=== PATIENT | male | born 1970 | race Caucasian/White ===

== ENCOUNTER 2016-10-02 12:47 | Emergency (ER) | payer SELFPAY ==
--- NOTE | 2016-10-02 15:34 | UC ---
Skin Complaint HPI - HPI Summary HPI Summary: painful rash day 2 around lower rib to abdomen right only, red base with vesicles - History of Current Complaint Chief Complaint: UCSkin Time Seen by Provider: 10/02/16 15:25 Stated Complaint: RASH Hx Obtained From: Patient Onset/Duration: Sudden Onset, Lasting Days - 2, Still Present Skin Exposure Onset/Duration: Days Ago Timing: Constant Onset Severity: Moderate Current Severity: Moderate Pain Intensity: 6 Pain Scale Used: 0-10 Numeric Location: Discrete - radiating around right back side of chest abdomen Aggravating: Nothing Alleviating: Nothing Associated Signs & Symptoms: Positive: Rash - Allergy/Home Medications Allergies/Adverse Reactions: Allergies Allergy/AdvReac Type Severity Reaction Status Date / Time No Known Allergies Allergy Verified 10/02/16 15:08 Review of Systems Constitutional: Negative Skin: Rash Eyes: Negative ENT: Negative Respiratory: Negative Cardiovascular: Negative Gastrointestinal: Negative Genitourinary: Negative Motor: Negative Neurovascular: Negative Musculoskeletal: Negative Neurological: Negative Psychological: Negative All Other Systems Reviewed And Are Negative: Yes PMH/Surg Hx/FS Hx/Imm Hx Previously Healthy: Yes - Surgical History Surgical History: Yes Surgery Procedure, Year, and Place: TONSILLECTOMY, APPENDECTOMY - Family History Known Family History: Positive: Hypertension - Social History Occupation: Unemployed Lives: With Family Alcohol Use: Occasionally Substance Use Type: None Smoking Status (MU): Never Smoked Tobacco Physical Exam Triage Information Reviewed: Yes Appearance: Well-Appearing, No Pain Distress, Well-Nourished Vital Signs: Initial Vital Signs Temp 98.3 F 10/02/16 15:03 Pulse 75 10/02/16 15:03 Resp 16 10/02/16 15:03 BP 175/115 10/02/16 15:03 Pulse Ox 95 10/02/16 15:03 Vital Signs Reviewed: Yes Eye Exam: Normal Eyes: Positive: Conjunctiva Clear ENT Exam: Normal ENT: Positive: Normal ENT inspection, Hearing grossly normal. Negative: Nasal congestion, Nasal drainage, Trismus, Muffled/hoarse voice Neck exam: Normal Neck: Positive: Supple, Nontender, No Lymphadenopathy Respiratory Exam: Normal Respiratory: Positive: Chest non-tender, Lungs clear, Normal breath sounds, No respiratory distress, No accessory muscle use Cardiovascular Exam: Normal Cardiovascular: Positive: RRR, No Murmur, Pulses Normal, Brisk Capillary Refill Musculoskeletal Exam: Normal Musculoskeletal: Positive: Strength Intact, ROM Intact Neurological Exam: Normal Neurological: Positive: Alert, Muscle Tone Normal Psychological Exam: Normal Skin: Positive: rashes, significant lesion(s) - varacella rash right back radiating around lower ribs on to abdomen Course/Dx - Course Course Of Treatment: valtrex, hydrocodone, ibuprofen, referral for BP recheck DASH diet information follow with pcp - Differential Diagnoses - Skin Complaint Differential Diagnoses: Impetigo, Local Allergic Reaction, Varicella Zoster - Diagnoses Provider Diagnoses: Varicella [place], Hypertension Discharge - Discharge Plan Condition: Stable Disposition: HOME Prescriptions: HYDROcodone/ACETAMIN 5-325 MG* [[place] 5-325 TAB*] 1 - 2 tab PO Q6H PRN #24 tab MDD 8 PRN Reason: Pain ValACYclovir (*) [Valtrex 1 GM(*)] 1 gm PO TID #21 tab Patient Education Materials: Shingles (ED), DASH Eating Plan (ED), Hypertension (ED) Referrals: [facility]FERR[facility] [Outside] - 5 Days No Primary Care Phys,NOPCP [Primary Care Provider] -
== END 2016-10-02 15:52 | disposition home or self-care (01) ==
LOC: UCEAST 12:47
DX: B02.9 Zoster without complications (principal); I10 Essential (primary) hypertension
CPT/HCPCS: 99202; G0463

== ENCOUNTER 2017-01-08 11:43 | Emergency (ER) | payer BC ==
[2017-01-08] MEDS ORDERED: Ibuprofen TAB* 600 MG PO ONE (14:00)
--- NOTE | 2017-01-08 14:01 | UC ---
FLU HPI - HPI Summary HPI Summary: 46 male presents with complaints of sore throat, headache, body aches, nasal congestion and dry non-productive cough that began yesterday 01/07/17. Says "he feels like crap". States symptoms have worsened over night. He does not know if he has had a fever but has felt feverish/chills. Took ibuprofen with the last dose being around 8 am this morning. 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 Denies nausea/vomiting, ear pain, SOB, chest pain and difficulty breathing. Did not have the flu shot this year. - History of Current Complaint Chief Complaint: UCRespiratory Stated Complaint: SORE THROAT Time Seen by Provider: 01/08/17 13:32 Hx Obtained From: Patient Onset/Duration: Sudden Onset, Lasting Days, Worse Since Severity Currently: Mild Severity Initially: Moderate Pain Intensity: 7 Pain Scale Used: 0-10 Numeric Associated Signs & Symptoms: Positive: Fever, Myalgia, Cough, Sore Throat, Nasal Congestion, Headache Related Hx: Possible Flu/Infectious Exposure - Allergy/Home Medications Allergies/Adverse Reactions: Allergies Allergy/AdvReac Type Severity Reaction Status Date / Time No Known Allergies Allergy Verified 01/08/17 13:32 PMH/Surg Hx/FS Hx/Imm Hx Endocrine History Of: Denies: Diabetes Cardiovascular History Of: Denies: Cardiac Disorders, Hypertension Respiratory History Of: Denies: COPD - Surgical History Surgical History: Yes Surgery Procedure, Year, and Place: TONSILLECTOMY, APPENDECTOMY - Family History Known Family History: Positive: Hypertension - Social History Alcohol Use: Weekly Substance Use Type: None Smoking Status (MU): Never Smoked Tobacco - Immunization History Most Recent Influenza Vaccination: did not have Vaccination Up to Date: Yes Review of Systems Constitutional: Fever, Chills, Fatigue Skin: Negative Eyes: Negative ENT: Sore Throat, Nasal Discharge Respiratory: Cough Cardiovascular: Negative Gastrointestinal: Negative Genitourinary: Negative Motor: Negative Neurovascular: Negative Musculoskeletal: Myalgia Neurological: Headache Psychological: Negative All Other Systems Reviewed And Are Negative: Yes Physical Exam Triage Information Reviewed: Yes Appearance: No Pain Distress, Well-Nourished, Ill-Appearing Vital Signs: Initial Vital Signs Temp 99.4 F 01/08/17 13:29 Pulse 48 01/08/17 13:29 Resp 20 01/08/17 13:29 BP 139/75 01/08/17 13:29 Pulse Ox 98 01/08/17 13:29 low grade temp with ibuprofen Vital Signs Reviewed: Yes Eyes: Positive: Conjunctiva Clear ENT: Positive: Normal ENT inspection, Hearing grossly normal, Pharynx normal, Nasal congestion, TMs normal. Negative: Tonsillar swelling, Tonsillar exudate - no tonsils visualized Dental Exam: Normal Neck: Positive: Supple, Nontender, No Lymphadenopathy Respiratory: Positive: Chest non-tender, Lungs clear, Normal breath sounds, No respiratory distress, No accessory muscle use Cardiovascular: Positive: RRR, No Murmur, Pulses Normal, Brisk Capillary Refill Abdominal Exam: Normal Bowel Sounds: Positive: Present Musculoskeletal: Positive: Strength Intact, ROM Intact, No Edema Neurological: Positive: Alert Psychological Exam: Normal Skin Exam: Normal Flu Course/Dx - Course Course Of Treatment: influenza culture obtained however was difficult due to patient pulling away, not an accurate culture, no discharge available to culture. strep obtained by nurse and negative. given dose of ibuprofen while in office patient will be treated for flu. tamiflu, fluids, ibuprofen/tyelnol, rest and flonase for nasal congestion. aware of worsening signs and symptoms. follow up pcp. - Differential Dx/Diagnosis Differential Diagnosis/HQI/PQRI: Bronchitis, Influenza, Upper Respiratory Infection, Other - pharyngitis Provider Diagnoses: Influenza Discharge - Discharge Plan Condition: Stable Disposition: HOME Prescriptions: Fluticasone NASAL SPRAY 50MCG* [Flonase NASAL SPRAY 50MCG*] 2 spray BOTH NARES DAILY #1 btl Patient Education Materials: Influenza (ED) Forms: *Work Release Referrals: No Primary Care Phys,NOPCP [Primary Care Provider] - [facility] [place] [facility]ERR[facility] [Outside] Additional Instructions: Take prescribed Tamiflu with food to help with improving symptoms sooner. Use prescribed nasal spray for congestion. Drink plenty of fluids and get plenty of rest. Wash hands frequently as this is very contagious. Continue ibuprofen/tylenol for aches and fever. Chloraseptic spray helps with sore throat and is available over the counter. Swish with salt water is recommended. If you would like taking cough medicine at night to help sleep, you may take Robitussin over the counter at bedtime. If symptoms do not improve or worsen please return or seek medical attention.
== END 2017-01-08 14:50 | disposition home or self-care (01) ==
LOC: UCEAST 11:43
DX: J11.1 Influenza due to unidentified influenza virus with other respiratory manifestations (principal)
CPT/HCPCS: 87502; 87651; 99212; A9270-GY; G0463

== ENCOUNTER 2019-07-06 13:19 | Emergency (ER) | payer BC ==
[2019-07-06] MEDS ORDERED: Acetaminophen TAB* 325 MG PO ONE (13:26)
[2019-07-06 15:13] LABS: ABS Lymphocytes 0.7 10^3/ul (1.0-4.8); ABS Monocytes 0.8 10^3/ul (0-0.8); ABS Neutrophils 11.3 10^3/ul (1.5-7.7); Hematocrit 41 % (42-52); Lymphocyte % 5.4 %; Mean Corpuscular HGB Conc 34 g/dL (31-36); Mean Corpuscular Hemoglobin 30 pg (27-31); Mean Corpuscular Volume 87 fL (80-94); Mean Platelet Volume 7.3 fL (7.4-10.4); Platelet Count 225 10^3/uL (150-450); Red Blood Count 4.68 10^6 /uL (4.18-5.48); Red Cell Distribution Width 13 % (10-15); White Blood Count 12.8 10^3/uL (3.5-10.8)
[2019-07-06 15:27] LABS: Albumin/Globulin Ratio 1.9 (1-3); BUN/Creatinine Ratio 14.3 (8-20); Calcium 8.3 mg/dL (8.6-10.3); EGFR Non-African American 96.7 (>60); Globulin 2.1 g/dL (2-4); Potassium 3.5 mmol/L (3.5-5.0); Total Bilirubin 0.5 mg/dL (0.2-1.0); Total Protein 6.1 g/dL (6.4-8.9)
[2019-07-06] MEDS ORDERED: Ibuprofen TAB* 600 MG PO ONE (15:28)
[2019-07-06] MEDS ORDERED: Cephalexin CAP* 500 MG PO ONE (15:39)
[2019-07-06] MEDS ORDERED: Tetan/Diph/Pertus SYR(Tdap)* 0.5 ML SYR(BOOSTRIX) use SYR contains LATEX IM ONE (15:40)
[2019-07-06] MEDS ORDERED: DOXYcycline CAP(*) 100 MG PO ONE (15:40)
[2019-07-06 15:41] LABS: Urine Appearance Clear; Urine Bacteria Absent (Absent); Urine Bilirubin Negative (Negative); Urine Blood 1+ (Negative); Urine Color Straw; Urine Glucose Negative (Negative); Urine Ketones Negative (Negative); Urine Nitrite Negative (Negative); Urine Protein Negative (Negative); Urine Red Blood Cell Trace(0-2/hpf) (Absent); Urine Specific Gravity 1.002 (1.010-1.030); Urine Urobilinogen Negative (Negative); Urine White Blood Cell Absent (Absent)
[2019-07-06 16:16] VITALS: BP 143/81
--- NOTE | 2019-07-06 19:00 | ED ---
HPI Febrile Illness - HPI Summary HPI Summary: 49 year old male presents to the ED with a chief complaint of fever and chills starting Sunday and drastically worsening this morning. He reports that his left upper thigh lymph node is swollen, and he is coughing a little bit. He denies sore throat, dysuria, N/V/D, neck stiffness, headache, and rashes. He has not been out of the country recently and has not had exposure to ticks. He had shingles 3 years ago. Patient had had an appendectomy. He drinks alcohol occasionally and does not smoke tobacco or do recreational drugs. Medications reviewed. Allergies noted. - History of Current Complaint Chief Complaint: EDFever Time Seen by Provider: 07/06/19 14:22 Hx Obtained From: Patient Onset/Duration: Started Days Ago - 2 days ago, Still Present Timing: Lasting Days Pain Intensity: 0 Pain Scale Used: 0-10 Numeric Aggravating Factors: Nothing Alleviating Factors: Nothing Associated Signs and Symptoms: Cough, Swelling - left thigh lymph node - Allergy/Home Medications Allergies/Adverse Reactions: Allergies Allergy/AdvReac Type Severity Reaction Status Date / Time No Known Allergies Allergy Verified 01/08/17 13:32 PMH/Surg Hx/FS Hx/Imm Hx Endocrine/Hematology History: Denies: Hx Diabetes Cardiovascular History: Denies: Hx Hypertension Respiratory History: Denies: Hx Chronic Obstructive Pulmonary Disease (COPD) - Surgical History Surgery Procedure, Year, and Place: TONSILLECTOMY, APPENDECTOMY Infectious Disease History: No Infectious Disease History: Denies: Traveled Outside the [place] in Last 30 Days - Family History Known Family History: Positive: Hypertension - Social History Alcohol Use: Weekly Substance Use Type: Reports: None Smoking Status (MU): Never Smoked Tobacco Review of Systems Positive: Fever, Chills Negative: Sore Throat Positive: Cough Negative: Vomiting, Diarrhea, Nausea Negative: dysuria Musculoskeletal: Negative - Neg - neck stiffness Negative: Headache All Other Systems Reviewed And Are Negative: Yes Physical Exam - Summary Physical Exam Summary: Constitutional: Well-developed, Well-nourished, Alert. (-) Distressed Skin: Warm, Dry. Wound on left leg is warm, tender, and erythematous. HENT: Normocephalic; Atraumatic Eyes: Conjunctiva normal Neck: Musculoskeletal ROM normal neck. (-) JVD, (-) Stridor, (-) Tracheal deviation Cardio: Rhythm regular, rate normal, Heart sounds normal; Intact distal pulses; Radial pulses are 2+ and symmetric. (-) Murmur Pulmonary/Chest wall: Effort normal. (-) Respiratory distress, (-) Wheezes, (-) Rales Abd: Soft, (-) tenderness, (-) Distension, (-) Guarding, (-) Rebound Musculoskeletal: (-) Edema Lymph: (-) Cervical adenopathy, lymphadenopathy in the left thigh. Neuro: Alert, Oriented x3, negative Brudzinskis and Kernigs signs. Psych: Mood and affect Normal Triage Information Reviewed: Yes Vital Signs On Initial Exam: Initial Vitals Temp Pulse Resp BP Pulse Ox 103.1 F 109 16 150/94 97 07/06/19 13:21 07/06/19 13:21 07/06/19 13:21 07/06/19 13:21 07/06/19 13:21 Vital Signs Reviewed: Yes Procedures - Sedation Patient Received Moderate/Deep Sedation with Procedure: No Diagnostics - Vital Signs Vital Signs Temp Pulse Resp BP Pulse Ox 07/06/19 16:15 100.6 F 98 20 143/81 96 07/06/19 16:00 89 96 07/06/19 15:02 85 95 07/06/19 14:47 101 F 07/06/19 14:38 89 94 07/06/19 13:21 103.1 F 109 16 150/94 97 - Laboratory Lab Results: Lab Results 07/06/19 07/06/19 07/06/19 Range/Units 14:59 14:59 14:59 WBC 12.8 H (3.5-10.8) 10^3/uL RBC 4.68 (4.18-5.48) 10^6 /uL Hgb 14.0 (14.0-18.0) g/dL Hct 41 L (42-52) % MCV 87 (80-94) fL MCH 30 (27-31) pg MCHC 34 (31-36) g/dL RDW 13 (10-15) % Plt Count 225 (150-450) 10^3/uL MPV 7.3 L (7.4-10.4) fL Neut % (Auto) 88.6 % Lymph % (Auto) 5.4 % [place] % (Auto) 5.9 % Eos % (Auto) 0.0 % Baso % (Auto) 0.1 % Absolute Neuts (auto) 11.3 H (1.5-7.7) 10^3/ul Absolute Lymphs (auto) 0.7 L (1.0-4.8) 10^3/ul Absolute Monos (auto) 0.8 (0-0.8) 10^3/ul Absolute Eos (auto) 0.0 (0-0.6) 10^3/ul Absolute Basos (auto) 0.0 (0-0.2) 10^3/ul Absolute Nucleated RBC 0.0 10^3/ul Nucleated RBC % 0.0 Sodium 132 L (135-145) mmol/L Potassium 3.5 (3.5-5.0) mmol/L Chloride 102 (101-111) mmol/L Carbon Dioxide 24 (22-32) mmol/L Anion Gap 6 (2-11) mmol/L BUN 12 (6-24) mg/dL Creatinine 0.84 (0.67-1.17) mg/dL Est GFR ( Amer) 117.0 (>60) Est GFR (Non-Af Amer) 96.7 (>60) BUN/Creatinine Ratio 14.3 (8-20) Glucose 109 H (70-100) mg/dL Lactic Acid 1.2 (0.5-2.0) mmol/L Calcium 8.3 L (8.6-10.3) mg/dL Total Bilirubin 0.50 (0.2-1.0) mg/dL AST 16 (13-39) U/L ALT 20 (7-52) U/L Alkaline Phosphatase 56 (34-104) U/L Total Protein 6.1 L (6.4-8.9) g/dL Albumin 4.0 (3.2-5.2) g/dL Globulin 2.1 (2-4) g/dL Albumin/Globulin Ratio 1.9 (1-3) Urine Color Urine Appearance Urine pH (5-9) Ur Specific [place] (1.010-1.030) Urine Protein (Negative) Urine Ketones (Negative) Urine Blood (Negative) Urine Nitrate (Negative) Urine Bilirubin (Negative) Urine Urobilinogen (Negative) Ur Leukocyte Esterase (Negative) Urine WBC (Auto) (Absent) Urine RBC (Auto) (Absent) Urine Bacteria (Absent) Urine Glucose (Negative) 07/06/19 Range/Units 15:31 WBC (3.5-10.8) 10^3/uL RBC (4.18-5.48) 10^6 /uL Hgb (14.0-18.0) g/dL Hct (42-52) % MCV (80-94) fL MCH (27-31) pg MCHC (31-36) g/dL RDW (10-15) % Plt Count (150-450) 10^3/uL MPV (7.4-10.4) fL Neut % (Auto) % Lymph % (Auto) % [place] % (Auto) % Eos % (Auto) % Baso % (Auto) % Absolute Neuts (auto) (1.5-7.7) 10^3/ul Absolute Lymphs (auto) (1.0-4.8) 10^3/ul Absolute Monos (auto) (0-0.8) 10^3/ul Absolute Eos (auto) (0-0.6) 10^3/ul Absolute Basos (auto) (0-0.2) 10^3/ul Absolute Nucleated RBC 10^3/ul Nucleated RBC % Sodium (135-145) mmol/L Potassium (3.5-5.0) mmol/L Chloride (101-111) mmol/L Carbon Dioxide (22-32) mmol/L Anion Gap (2-11) mmol/L BUN (6-24) mg/dL Creatinine (0.67-1.17) mg/dL Est GFR ( Amer) (>60) Est GFR (Non-Af Amer) (>60) BUN/Creatinine Ratio (8-20) Glucose (70-100) mg/dL Lactic Acid (0.5-2.0) mmol/L Calcium (8.6-10.3) mg/dL Total Bilirubin (0.2-1.0) mg/dL AST (13-39) U/L ALT (7-52) U/L Alkaline Phosphatase (34-104) U/L Total Protein (6.4-8.9) g/dL Albumin (3.2-5.2) g/dL Globulin (2-4) g/dL Albumin/Globulin Ratio (1-3) Urine Color Straw Urine Appearance Clear Urine pH 7.0 (5-9) Ur Specific [place] 1.002 L (1.010-1.030) Urine Protein Negative (Negative) Urine Ketones Negative (Negative) Urine Blood 1+ A (Negative) Urine Nitrate Negative (Negative) Urine Bilirubin Negative (Negative) Urine Urobilinogen Negative (Negative) Ur Leukocyte Esterase Negative (Negative) Urine WBC (Auto) Absent (Absent) Urine RBC (Auto) Trace(0-2/hpf) (Absent) Urine Bacteria Absent (Absent) Urine Glucose Negative (Negative) Result Diagrams: 07/06/19 14:59 07/06/19 14:59 Lab Statement: Any lab studies that have been ordered have been reviewed, and results considered in the medical decision making process. - Radiology CXR Radiology Interpretation Completed By: Radiologist Summary of Radiographic Findings: LOW LUNG VOLUMES, NO EVIDENCE FOR ACUTE FINDING. An ED physician has reviewed this report. Course/Dx - Course Course Of Treatment: Patient is here with cellulitis. Patient's had fever with really no other symptoms started a couple days ago. Patient did notice a enlarged lymph node on his left leg. When patient was undressed, he was found to have a wound on his leg that appeared infected. Patient a sepsis workup which was grossly unremarkable some mild leukocytosis. Patient was started on Keflex and doxycycline to cover for strep/staph. - Diagnoses Provider Diagnoses: Lymphadenopathy, Cellulitis, Fever Discharge ED - Sign-Out/Discharge Documenting (check all that apply): Patient Departure - discharge - Discharge Plan Condition: Stable Disposition: HOME Prescriptions: Cephalexin CAP* [Keflex CAP*] 500 mg PO TID 7 Days #21 cap DOXYcycline CAP(*) [DOXYcycline 100MG CAP(*)] 100 mg PO BID 7 Days #14 cap Patient Education Materials: Cellulitis (ED) Referrals: [facility] [Outside] [facility] [facility] [Outside] Additional Instructions: Please take your antibiotics as prescribed Please take Tylenol and Motrin for fever Please return to the emergency department if you have worsening fever, vomiting , worsening redness at your wound Please call both of these referrals to set up an appointment in 1-3 days - Billing Disposition and Condition Condition: STABLE Disposition: Home - Attestation Statements Document Initiated by Scribe: Yes Documenting Scribe: Jason Yen Provider For Whom Scribe is Documenting (Include Credential): Harish Mustafa MD. Scribe Attestation: IJason, scribed for Harish Mustafa MD. on 07/06/19 at 2115. Scribe Documentation Reviewed: Yes Provider Attestation: The documentation as recorded by the scribe, Jason Yen accurately reflects the service I personally performed and the decisions made by me, Harish Mustafa MD. Status of Scribe Document: Viewed
== END 2019-07-06 16:14 | disposition home or self-care (01) ==
LOC: ED 13:19
DX: R59.1 Generalized enlarged lymph nodes (principal); L03.90 Cellulitis, unspecified; R50.9 Fever, unspecified; R05 Cough; Z79.899 Other long term (current) drug therapy
CPT/HCPCS: 36415; 71046; 80053; 81003; 81015; 83605; 85025; 87040; 90471; 90715; 99282; A9270-GY

== ENCOUNTER 2019-07-07 09:45 | Inpatient (IN) | payer BC ==
[2019-07-07 10:17] LABS: ABS Lymphocytes 1.4 10^3/ul (1.0-4.8); Eosinophil % 0.1 %; Hematocrit 41 % (42-52); Lymphocyte % 16.9 %; Mean Corpuscular HGB Conc 34 g/dL (31-36); Mean Corpuscular Hemoglobin 30 pg (27-31); Mean Corpuscular Volume 89 fL (80-94); Mean Platelet Volume 6.9 fL (7.4-10.4); Platelet Count 237 10^3/uL (150-450); Red Blood Count 4.68 10^6 /uL (4.18-5.48); Red Cell Distribution Width 13 % (10-15); White Blood Count 8.5 10^3/uL (3.5-10.8)
--- NOTE | 2019-07-07 10:19 | ED ---
Lower Extremity - HPI Summary HPI Summary: Patient is a 49-year-old male who presents emergency department for worsening redness and pain to left leg. states patient sustained abrasions to his left lower leg a few weeks ago and area has since became red and painful. Patient was seen in the ER yesterday with a fever and diagnosed with cellulitis. He was placed on Keflex and doxycycline. Patient returns to the ER today because redness has spread up left leg with painful lump. Patient otherwise denies past medical history. Symptoms are moderate in severity. No current modifying factors. Pt. has been taking tylenol and motrin around the clock for fever and pain control. Labs and BCs obtained yesterday. - History of Current Complaint Chief Complaint: EDExtremityLower Stated Complaint: INFECTED CUT PER PT Time Seen by Provider: 07/07/19 09:50 Hx Obtained From: Patient Pain Intensity: 5 - Allergies/Home Medications Allergies/Adverse Reactions: Allergies Allergy/AdvReac Type Severity Reaction Status Date / Time No Known Allergies Allergy Verified 01/08/17 13:32 Home Medications: Home Medications Acetaminophen TAB* [Tylenol TAB*] 325 mg PO Q4H PRN 07/07/19 [History Confirmed 07/07/19] Ibuprofen TAB* [Advil TAB*] 200 mg PO Q6H PRN 07/07/19 [History Confirmed ] PMH/Surg Hx/FS Hx/Imm Hx Previously Healthy: Yes Endocrine/Hematology History: Denies: Hx Diabetes Cardiovascular History: Denies: Hx Hypertension Respiratory History: Denies: Hx Chronic Obstructive Pulmonary Disease (COPD) - Surgical History Surgery Procedure, Year, and Place: TONSILLECTOMY, APPENDECTOMY Infectious Disease History: No Infectious Disease History: Denies: Traveled Outside the [place] in Last 30 Days - Family History Known Family History: Positive: Hypertension, Non-Contributory - Social History Occupation: Unemployed Lives: With Family Alcohol Use: Weekly Substance Use Type: Reports: None Smoking Status (MU): Never Smoked Tobacco Review of Systems Positive: Fever Cardiovascular: Negative Respiratory: Negative Gastrointestinal: Negative Positive: Other - redness and pain to left leg. Positive: Other - Wounds to left lower leg. All Other Systems Reviewed And Are Negative: Yes Physical Exam Triage Information Reviewed: Yes Vital Signs On Initial Exam: Initial Vitals Temp Pulse Resp BP Pulse Ox 98.1 F 84 16 144/96 97 07/07/19 09:46 07/07/19 09:46 07/07/19 09:46 07/07/19 09:46 07/07/19 09:46 Vital Signs Reviewed: Yes Appearance: Positive: Well-Appearing - Pt. lying on bed in NAD. Skin: Positive: Warm, Dry Head/Face: Positive: Temporal Artery Tenderness Eyes: Positive: Normal, EOMI Neck: Positive: Supple Respiratory/Lung Sounds: Positive: Clear to Auscultation, Breath Sounds Present Cardiovascular: Positive: Normal, RRR Musculoskeletal: Positive: Other - Two small wounds to left lower leg with surrouding erythema and warmth. Skin marker in place and erythem does not go outside of lines. Lymphangitis up leg into groin. Neurological: Positive: Normal, CN Intact II-III Psychiatric: Positive: Affect/Mood Appropriate Procedures - Sedation Patient Received Moderate/Deep Sedation with Procedure: No Diagnostics - Vital Signs Vital Signs Temp Pulse Resp BP Pulse Ox 07/07/19 10:01 71 26 142/92 95 07/07/19 09:46 98.1 F 84 16 144/96 97 - Laboratory Result Diagrams: 07/07/19 10:06 07/07/19 10:06 Lab Statement: Any lab studies that have been ordered have been reviewed, and results considered in the medical decision making process. Lower Extremity Course/Dx - Course Course Of Treatment: Pt. with worsening erythema and new lymphangitis. He is afebrile and nontoxic appearing. Labs rechecked and show an improving WBC but CRP of 143. Pt. given a dose of IV rocephin. Pt. concerned with being dc home. He deons not current have a PCP. Given spreading infection hospitalist consulted for admission. Case discussed with Dr. Avila who will accept pt. for admission. - Diagnoses Differential Diagnosis/HQI/PQRI: Positive: Cellulitis Provider Diagnoses: Cellulitis, leg, Lymphangitis Discharge ED - Sign-Out/Discharge Documenting (check all that apply): Patient Departure - Discharge Plan Condition: Stable Disposition: ADMITTED TO [facility] - Billing Disposition and Condition Condition: STABLE Disposition: Admitted to [facility]
[2019-07-07] MEDS ORDERED: cefTRIAXone(*) 1 GM in NS 0.9% 50 ML* 50 ML IVPB ONE (10:38)
[2019-07-07 10:40] LABS: Albumin 4.3 g/dL (3.2-5.2); Albumin/Globulin Ratio 1.9 (1-3); BUN/Creatinine Ratio 10.8 (8-20); C Reactive Protein 143.09 mg/L (<8.01); Calcium 8.9 mg/dL (8.6-10.3); EGFR African American 118.7 (>60); EGFR Non-African American 98.1 (>60); Globulin 2.3 g/dL (2-4); Potassium 3.8 mmol/L (3.5-5.0); Total Bilirubin 0.5 mg/dL (0.2-1.0); Total Protein 6.6 g/dL (6.4-8.9)
[2019-07-07] MEDS: ceFAZolin 1 GM ADVAN(*) 1 GM in NS 0.9% 50 ML* 50 ML IVPB SCH ×2 (14:30→21:12)
[2019-07-07] MEDS: Heparin VIAL(*) 5000 UNITS/ML VIAL (FIVE THOUSAND) SUBCUT SCH ×2 (14:30→21:18)
[2019-07-07] MEDS: Acetaminophen TAB* 325 MG PO PRN (14:44)
--- NOTE | 2019-07-07 16:30 | HP ---
HISTORY AND PHYSICAL: DATE OF ADMISSION: 07/07/19 TIME OF EVALUATION: 12:50 p.m. PRIMARY CARE PROVIDER: The patient has no primary care provider, but he is making arrangements to see Dr. Alegria. CHIEF COMPLAINT: "My leg is worse." HISTORY OF PRESENT ILLNESS: Mr. Huber is a 49-year-old male with no significant past medical history, who initially presented to the emergency room yesterday with complaints of fever, chills, left leg redness. The patient states he was in his usual state of health last week. He has been doing some work around the house including some painting and he thinks he "bumped" his left leg on to a ladder and had some scrape to the johnson area. So, he noted the scratch to the anterior aspect of his left leg and over the weekend , he developed fever, chills, body aches and his left johnson became erythematous, reason why he came to the emergency room. He was evaluated by Dr. Mustafa and was prescribed cephalexin and doxycycline for cellulitis. The patient's lesion was demarcated and he states that at home, the erythema had spread, going all the way up to his thigh and he also noticed that "the lump" in his left inguinal area was more pronounced and tender. He states that he took the medication as prescribed, but became concerned with progression of his erythema , reason why he came to the emergency room for further evaluation. On his initial ED visit, the patient had a white cell count of 12.8 and this is normalized now to 8.5. PAST MEDICAL HISTORY: None. PAST SURGICAL HISTORY: 1. Status post tonsillectomy. 2. Status post appendectomy. FAMILY HISTORY: His father of cancer. He does not know the primary. He also had hypertension. SOCIAL HISTORY: The patient states that he drinks alcohol weekly, some times beers. Denies tobacco or drug use. He works as a teacher. Surrogate decision maker is his , Yohana Walker, phone number is [phone]. REVIEW OF SYSTEMS: A 14-point review of systems was performed and all the pertinent negative findings are in the HPI. PHYSICAL EXAMINATION GENERAL: The patient is a pleasant middle-aged gentleman, lying in the ED stretcher, in no acute distress. VITAL SIGNS: Temperature 98.7, heart rate is 71, respiratory rate is 18, oxygen saturation is 99% on room air, blood pressure is 149/97. HEENT: Pupils are equal. Moist mucous membranes. CVS: Normal S1 and S2. Regular rate and rhythm. CHEST: Breath sounds bilaterally with no added sounds. ABDOMEN: Soft. Bowel sounds are present. EXTREMITIES: The patient has scraped the left johnson with erythema that extends the area demarcated by the ED nurse yesterday. He has lymphangitic streaks going all the way up to his left inguinal area with palpable masses in the area with mild tenderness suggestive of lymphadenopathy. There are good pulses bilaterally. Good capillary refill. NEUROLOGIC: He is alert and oriented x3. Able to move all 4 extremities. DIAGNOSTIC STUDIES/LAB DATA: The patient had a CBC that showed WBC of 8.5, hemoglobin 14, hematocrit 41, platelets of 237, 79% neutrophils. Chemistry showed a sodium of 141, potassium 3.8, chloride 105, bicarb 29, BUN 9, creatinine of 0.83, glucose of 107, lactic acid is 1.7, calcium is 8.9. LFTs are normal. CRP is 143. EKG done on 07/07/19 at 2:36 p.m. showed sinus rhythm at 73 beats per minute with ventricular trigeminy. There is no prior EKG to compare. ASSESSMENT AND PLAN: Mr. Huber is a 49-year-old male with no past medical history, who presents to the emergency room with worsening of his left lower extremity cellulitis despite oral antibiotic therapy. 1. Sepsis. The patient met sepsis criteria on his Sunday visit with fever, tachycardia and leukocytosis. This has resolved at this time. Source is cellulitis. 2. Left lower extremity cellulitis. Suspect streptococcal in nature. There is no purulence and the sudden onset of symptoms associated with fever and other systemic signs is suggestive of streptococcal infection. The patient will be started on cefazolin IV and we will continue symptomatic treatment. We will demarcate the new area of erythema and we will continue to monitor. I believe his left inguinal lesion represents adenopathy, but he is at risk of forming phlegmon. We will continue to monitor and if he continues to progress, we will check an ultrasound. Blood cultures are ordered. 3. DVT prophylaxis. The patient has a score of 2 on a DVT prophylaxis assessment guide and he will be started on subcutaneous heparin. 4. Code status is full. TIME SPENT: Approximately 50 minutes was spent with the patient interview, medical record review, and physical examination to complete this admission. More than half of this time was spent [id number] with the patient and coordination of care. [id number]/[facility] #: [id number] BRENDAN
[2019-07-07 18:58] LABS: Magnesium 1.9 mg/dL (1.9-2.7)
[2019-07-07] MEDS: Ibuprofen TAB* 600 MG PO PRN (19:33)
[2019-07-08] MEDS: ceFAZolin 1 GM ADVAN(*) 1 GM in NS 0.9% 50 ML* 50 ML IVPB SCH ×3 (05:25→21:55)
[2019-07-08] MEDS: Heparin VIAL(*) 5000 UNITS/ML VIAL (FIVE THOUSAND) SUBCUT SCH ×3 (05:30→21:47)
[2019-07-08 07:50] LABS: ABS Lymphocytes 1.7 10^3/ul (1.0-4.8); ABS Monocytes 0.8 10^3/ul (0-0.8); ABS Neutrophils 4.6 10^3/ul (1.5-7.7); Eosinophil % 0.5 %; Hematocrit 41 % (42-52); Hemoglobin 14.1 g/dL (14.0-18.0); Lymphocyte % 23.2 %; Mean Corpuscular HGB Conc 35 g/dL (31-36); Mean Corpuscular Hemoglobin 31 pg (27-31); Mean Corpuscular Volume 88 fL (80-94); Mean Platelet Volume 7.4 fL (7.4-10.4); Nucleated Red Blood Cells % 0.1; Platelet Count 251 10^3/uL (150-450); Red Blood Count 4.64 10^6 /uL (4.18-5.48); Red Cell Distribution Width 13 % (10-15); White Blood Count 7.2 10^3/uL (3.5-10.8)
[2019-07-08 08:09] LABS: BUN/Creatinine Ratio 11.7 (8-20); C Reactive Protein 109.95 mg/L (<8.01); Calcium 8.7 mg/dL (8.6-10.3); EGFR African American 129.4 (>60); EGFR Non-African American 106.9 (>60); Potassium 3.8 mmol/L (3.5-5.0)
[2019-07-08] MEDS: Ibuprofen TAB* 600 MG PO PRN (08:46)
[2019-07-08] MEDS ORDERED: Influenza VAC *QUAD* 2019-20* 0.5 ML SYRINGE IM ONE (09:00)
[2019-07-08] MEDS: Acetaminophen TAB* 325 MG PO PRN (09:53)
--- NOTE | 2019-07-08 12:11 | PN ---
Subjective Date of Service: 07/08/19 Interval History: HOSPITALIST PROGRESS NOTE Patient seen and examined at bedside. Care reviewed and d/w Yamileth Dupont RN. He feels better today. States his left leg is "sore", but not painful. Had 5 beats of Vtach during breakfast, asymptomatic and unaware. States he had a "funny EKG" in the past, but doesn't know exactly what was abnormal. Family History: Unchanged from Admission Social History: Unchanged from Admission Past Medical History: Unchanged from Admission Objective Active Medications: Acetaminophen (Tylenol Tab*) 650 mg PO Q6H PRN PRN Reason: MILD PAIN or TEMP > 100.4 Last Admin: 07/08/19 09:53 Dose: 650 mg Heparin Sodium (Porcine) (Heparin Vial(*)) 5,000 units SUBCUT Q8HR [facility] Last Admin: 07/08/19 05:30 Dose: 5,000 units Cefazolin Sodium 1 gm/ Sodium (Chloride) 50 mls @ 200 mls/hr IVPB Q8H [facility] Last Admin: 07/08/19 05:25 Dose: 200 mls/hr Ibuprofen (Motrin Tab*) 600 mg PO Q6H PRN PRN Reason: PAIN Last Admin: 07/08/19 08:46 Dose: 600 mg Vital Signs - 8 hr 07/08/19 07/08/19 07/08/19 06:03 08:00 11:07 Temperature 98.3 F 98.3 F Pulse Rate 64 64 Respiratory 19 16 18 Rate Blood Pressure 158/100 147/101 (mmHg) O2 Sat by Pulse 98 100 Oximetry Oxygen Devices in Use Now: None Appearance: Pleasant middle aged gentleman sitting up in bed in NAD Eyes: No Scleral Icterus Ears/Nose/Mouth/Throat: Mucous Membranes Moist Neck: Trachea Midline Respiratory: Symmetrical Chest Expansion and Respiratory Effort, Clear to Auscultation, - - Pectus excavatum Cardiovascular: RRR - Normal S1 and S2 Abdominal: NL Sounds; No Tenderness; No Distention Extremities: - - Left LE erythema is less intense, but still extends all the way up to his thigh. Left inguinal adenopathy is paper machine backtender, but less prominent that yesterday Neurological: Alert and Oriented x 3, NL Muscle Strength and Tone Result Diagrams: 07/08/19 07:00 07/08/19 07:00 Assess/Plan/Problems-Billing Assessment: Mr Huber is a 49yo M with NS PMH (but has not seen a PCP in a couple years), who presented to ED with c/o left LE pain, edema, erythema, who failed outpatient therapy for cellulitis. - Patient Problems (1) Sepsis Comment: - Met sepsis criteria with fever, tachycardia, and leukocytosis. - Source is LE cellulitis. (2) Cellulitis Comment: - Suspect streptococcal infection. No purulence, and inguinal adenopathy seems to be improving - no indication for US at this time. - Continue Cefazolin. - Blood cultures showed no growth so far. (3) V-tach Comment: - Patient was in Trigeminy yesterday, and had 5 beats of Vtach today. - He was told he had a "funny EKG" before - will obtain records from prior PCP. - Continue to monitor on Telemetry. (4) Cardiomyopathy Comment: - Echo shows moderate diffuse hypokinesis with EF 30-35%; anteroseptum and anterior wall are worse. - Of note, patient does have pectum excavatus. States he was followed as a child , but doesn't remember any recommendations for surgery or cardiac w/u. - His BP is borderline elevated - with Vtach, will add low dose beta ady and monitor. - Cardiology consult requested. (5) DVT prophylaxis Comment: - SQ heparin. (6) Full code status Status and Disposition: Inpatient.
[2019-07-08] MEDS ORDERED: Perflutren Lipid Microsphere* 3 ML VIAL ONE (12:40)
--- NOTE | 2019-07-08 16:07 | ECHO ---
*[facility]* [place] [address] Fax #: [phone] Transthoracic Echocardiogram Patient: Juan Huber : 1970 Study Date: 07/08/2019 Age: 49 Gender: M HR: 55 bpm Height: 74 in /188 cm BSA: 2.21 m^2 Weight: 208.6 lb /94.8 kg BMI: 26.8 kg/m^2 *Sheep Sorter: * Steph Wilcox RDCS RN *Referring Physician: * Emerald AguillonReading Physician: * Shant Perry MD Indications: Abnormal EKG. Tachycardia, ventricular paroxysmal. History: Admitted with LLE cellulitis and sepsis. Found to have trigeminal PVCs and V. Tach. Pectus excavatum. Risk factors: Hypertension. Conclusions Summary: - Left ventricle: The cavity size is normal. Wall thickness is moderately increased. The estimated ejection fraction is 30-35%. Moderate diffuse hypokinesis. The anteroseptum and anterior wall are worst. The inferolateral wall is best. - Right ventricle: Systolic function is moderately reduced. - Mitral valve: There is trace to mild regurgitation. - Aortic valve: There is no evidence of stenosis. There is trace regurgitation. - Pericardium, extracardiac: There is no pericardial effusion. - Pulmonary arteries: Systolic pressure is within the normal range. Pulmonary artery pressure may be underestimated - Study data: No prior study is available for comparison. Study data: Transthoracic echocardiogram. Procedure: Transthoracic echocardiography was performed. The study was technically limited due to chest wall deformity. Intravenous Definity 2 ml was administered to enhance imaging. Complete 2D, spectral Doppler, and color flow Doppler. Location: Bedside. Patient status: Inpatient. Patient room number: 401. No prior study is available for comparison. Rhythm: Bradycardia. Findings Left ventricle: The cavity size is normal. Wall thickness is moderately increased. The estimated ejection fraction is 30-35%. Moderate diffuse hypokinesis. The anteroseptum and anterior wall are worst. The inferolateral wall is best. Doppler parameters are consistent with abnormal left ventricular relaxation (grade 1 diastolic dysfunction). Right ventricle: The cavity size is normal. Systolic function is moderately reduced. Left atrium: The atrium is normal in size. Right atrium: The atrium is normal in size. Mitral valve: The leaflets are mildly thickened. There is no evidence of stenosis. There is trace to mild regurgitation. Aortic valve: Not well visualized. The leaflets are normal thickness. There is no evidence of stenosis. There is trace regurgitation. Tricuspid valve: The valve is structurally normal. There is no evidence of stenosis. There is trace to mild regurgitation. Pulmonic valve: The valve is structurally normal. There is no evidence of stenosis. There is trace regurgitation. Aorta: Aortic root: The aortic root is not dilated. Ascending aorta: The ascending aorta is not dilated. Aortic arch: The aortic arch is not dilated. Pericardium: There is no pericardial effusion. Pulmonary arteries: Not well visualized. Systolic pressure is within the normal range. Pulmonary artery pressure may be underestimated Systemic veins: Inferior vena cava: The vessel is normal in size. There is (>= 50%) respiratory change in the IVC dimension. Measurements Left ventricle Value Ref Aortic valve continued Value Ref BRUCE, LAX 5.1 cm 4.2 - 5.8 VTI, S 23.1 cm ---- ESD, LAX (H) 4.2 cm 2.5 - 4.0 Mean grad, S 4.0 mm Hg ---- FS, LAX (L) 18 % 25 - 43 Peak grad, S 6.0 mm Hg ---- PW, ED (H) 1.4 cm 0.6 - 1.0 LVOT/AV, VTI ratio 0.69 ---- IVS/PW, ED 0.99 E', med alton, TDI (L) 5.0 cm/sec >=7.0 Mitral valve Value R ef E/e', med alton, 13 Peak E 0.63 m/sec ---- TDI Peak A 0.52 m/sec ---- Decel time 254 ms ---- LVOT Value Ref Peak E/A ratio 1.2 ---- Peak reshma, S 0.82 m/sec VTI, S 15.9 cm Pulmonic valve Value Ref Mean grad, S 1 mm Hg Peak v, S 0.63 m/sec ---- Peak grad, S 2.0 mm Hg ---- Ventricular septum Value Ref IVS, ED (H) 1.4 cm 0.6 - 1.0 Tricuspid valve Value Ref Peak RV-RA grad, S 29 mm Hg ---- Right ventricle Value Ref Max TR reshma 2.7 m/sec ---- BRUCE, LAX 2.9 cm BRUCE minor ax, A4C 2.8 cm 1.9 - 3.5 Aortic root Value Ref mid Root diam 3.5 cm <4.3 Pressure, S 32 mm Hg Ascending aorta Value Ref Left atrium Value Ref AAo AP diam, S 3.3 cm ---- AP dim, ES 3.20 cm 3.00 - 4.00 Aortic arch Value Ref ML dim, A4C 3.7 cm Arch diam 2.8 cm ---- SI dim, A4C 4.9 cm Vol/bsa, ES, 1-p 16 ml/m^2 12 - 37 Decending aorta Value Ref A4C Bill peak reshma 0.57 m/sec ---- Vol/bsa, ES, A/L 25 ml/m^2 16 - 34 Pulmonary artery Value Ref Right atrium Value Ref Pressure, S 32.0 mm Hg ---- ML dim, ES, A4C 3.7 cm 2.6 - 4.4 SI dim, ES, A4C 4.9 cm 3.4 - 5.3 Inferior vena cava Value Ref Estimated RAP 3 mm Hg Diam 1.9 cm ---- Aortic valve Value Ref Alton diam, ED 2.2 cm Alton diam/bsa, ED 1.0 cm/m^2 Peak v, S 1.2 m/sec Legend: (L) and (H) roslyn values outside specified reference range. Prepared and electronically signed by Shant Perry MD 07/08/2019 16:07
[2019-07-08] MEDS: Metoprolol Tartrate TAB* 25 MG PO SCH (21:46)
[2019-07-09] MEDS: Melatonin 3 MG TAB PO PRN ×2 (01:44→22:18)
[2019-07-09] MEDS: ceFAZolin 1 GM ADVAN(*) 1 GM in NS 0.9% 50 ML* 50 ML IVPB SCH ×3 (04:58→21:20)
[2019-07-09] MEDS: Heparin VIAL(*) 5000 UNITS/ML VIAL (FIVE THOUSAND) SUBCUT SCH ×3 (05:07→21:21)
[2019-07-09] MEDS: Metoprolol Tartrate TAB* 25 MG PO SCH ×2 (09:00→21:21)
[2019-07-09] MEDS: Lisinopril TAB* 5 MG PO SCH (11:14)
[2019-07-09] MEDS ORDERED: Metoprolol Tartrate TAB* 25 MG PO ONE (11:34)
[2019-07-09] MEDS ORDERED: Metoprolol Tartrate TAB* 25 MG ONE (11:39)
--- NOTE | 2019-07-09 12:52 | CONS ---
CC: Hospitalist Service; Dr. Wilks CARDIOLOGY CONSULTATION REPORT: DATE OF CONSULT: 07/09/19 HISTORY OF PRESENT ILLNESS: I was asked by Dr. Regalado from the hospitalist service to see this 49-ye ar-old male patient who presented to the hospital on Sunday and admitted for cellulitis of the left l ower extremity. Apparently, according to the patient, almost 2 weeks ago or so working outside in [employer] s house and he thinks he bumped his left leg onto a ladder and had some scrape to the skin and the sh in area on the left side. He did not think that much about until Sunday, today is Sunday, when he started to have fever and chills and he thought that this was a flu. Sunday, he did not feel well, he presented to the emergency room and he was evaluated, he was prescribed antibiotic treatment and t hen he was sent home. Sunday, he did not feel good and subsequently was hospitalized and started on I V antibiotic. Part of his evaluation was an echocardiogram, which was done yesterday and it showed h is EF to be globally 30% to 35% and the worst wall motion abnormalities from the anterior wall, the m ost better wall motion is the inferior wall and some probably mild mitral insufficiency. He had no h istory of coronary artery disease, no history of myocardial infarction. He feels much better actuall y and responding very well to antibiotic treatment. He gives no history of congestive heart failure. No diabetes, possible hypertension, but he is not on medications. He drinks alcohol moderately, no history of smoking. He gives no nausea, no vomiting, no hematochezia, no orthopnea, no chest pain, no syncope, no dizziness, no palpitations, no tachycardia is appreciated. His review of all other sy stems essentially is negative. He also was noticed to have frequent PVCs, bigeminy, trigeminy and he had 5 or 6 beats run of nonsustained v-tach documented on the monitor. PAST MEDICAL HISTORY: As above. PAST SURGICAL HISTORY: Includes status post tonsillectomy and appendicectomy. ALLERGIES: He has no known allergies. FAMILY HISTORY: There is no family history of premature coronary artery disease. SOCIAL HISTORY: He drinks alcohol moderately. No history of illicit drug use and no tobacco consump tion. REVIEW OF SYSTEMS: Review all other systems essentially is negative. MEDICATIONS: His medications as an inpatient: 1. Tylenol 650 mg p.o. q.6 hours p.r.n. 2. He is on cephazolin IV q.8 hours 1 g. 3. He is on heparin 5000 units subcu q.8 hours. 4. Prinivil 2.5 mg daily. 5. Metoprolol 25 mg twice a day. PHYSICAL EXAM: He is awake, alert, and oriented. He is not in acute distress. He is chest pain-andrews e. Vitals: Blood pressure 142/94, his temperature 98.5, pulse 65, respiratory rate 16. Head Exam: Normocephalic, atraumatic. Head, Ears, Nose, and Throat: Essentially benign. Neck: Supple. JVP is not elevated. No carotid bruits. No masses in the neck are appreciated. Chest: Clear to auscul tation. No rales, no wheezes. No added sounds appreciated. Heart: Normal S1, S2. No added sounds . No gallops. No rubs. Abdomen: Benign. Positive bowel sounds. Extremities: On the left side, t here is mild erythema. No significant hotness. No redness. No significant swelling. No clubbing. No cyanosis. CONTINUITY WRITER: No focal deficits appreciated. Psych: Normal affect and mood. DIAGNOSTIC STUDIES/LAB DATA: His EKG that was done on 07/07/19 showed the patient to have normal sin us rhythm, heart rate 73 beats per minute. There is ventricular bigeminy and probably left atrial en largement. There is documented 5-beat run of nonsustained v-tach on July 08, which is yesterday at 8:36 in the morning. White blood cells 7.2, hemoglobin 14.1, hematocrit 41, and platelets 251. Sodium 143, potassium 3.8, chloride 106, total CO2 of 30, BUN 9, creatinine 0.77, glucose 130, magnesium 1.9. LFTs normal. CR P 110. TSH was not ordered. I discussed with Dr. Regalado; troponin I ordered. IMPRESSION: The patient is 49-year-old male patient with: 1. Admitted and hospitalized for cellulitis left lower extremity, improved significantly on antibiot ic treatment IV. 2. Cardiomyopathy with an echo done 07/08/19 yesterday, EF globally 30% to 35% of unclear etiology, could be multifactorial in nature. 3. Possible or probable systemic arterial hypertension. 4. Nonsustained ventricular tachycardia and frequent premature ventricular contractions. 5. Elevated CRP. 6. Moderate alcohol drinking. 7. Abnormal EKG as described. PLAN: Currently, this patient is being monitored. I have discussed him with Dr. Regalado. It is not immediately clear his cardiomyopathy, which could be multifactorial in nature, ischemic, although he had no symptoms of chest pain, moderate alcohol drinking, hypertensive cardiomyopathy, idiopathic, vi ral in the setting of his acute cellulitis as well. I increased his metoprolol to 25 mg twice a day. I started him on lisinopril 2.5 mg once a day. We will follow his chemistry and potassium. I ordered troponin as a baseline level and with his cardiom yopathy and although he is chest pain-free, given his newly diagnosed cardiomyopathy in the setting o f nonsustained v-tach, I recommend a cardiac catheterization to evaluate his coronary anatomy. Benef its, risks discussed with the patient, he is willing to proceed. I will discuss this further with Dr Danielle Betancur from the cath standpoint and scheduling. Any further recommendations will be pending his cl inical outcome. I answered all his concerns and questions up to his satisfaction. We will follow tawanna velazquez closely. His was at bedside which I answered her questions as well. More than half of at [address] 60 to 65 plus minutes was in the education and counseling mode. I discussed him further with Dr. Regalado. [id number]/[facility] #: [id number]
--- NOTE | 2019-07-09 14:14 | PN ---
Subjective Date of Service: 07/09/19 Interval History: HOSPITALIST PROGRESS NOTE Patient seen and examined at bedside. Care reviewed and d/w Yamileth Dupont RN. He feels well today. Had a good night of sleep. Denies chest pain, palpitations ; not aware of PVCs. LLE pain, edema, and erythema are much improved. Family History: Unchanged from Admission Social History: Unchanged from Admission Past Medical History: Unchanged from Admission Objective Active Medications: Acetaminophen (Tylenol Tab*) 650 mg PO Q6H PRN PRN Reason: MILD PAIN or TEMP > 100.4 Last Admin: 07/08/19 09:53 Dose: 650 mg Heparin Sodium (Porcine) (Heparin Vial(*)) 5,000 units SUBCUT Q8HR [facility] Last Admin: 07/09/19 14:02 Dose: 5,000 units Cefazolin Sodium 1 gm/ Sodium (Chloride) 50 mls @ 200 mls/hr IVPB Q8H [facility] Last Admin: 07/09/19 12:49 Dose: 200 mls/hr Ibuprofen (Motrin Tab*) 600 mg PO Q6H PRN PRN Reason: PAIN Last Admin: 07/08/19 08:46 Dose: 600 mg Lisinopril (Prinivil Tab*) 2.5 mg PO DAILY [facility] Last Admin: 07/09/19 11:14 Dose: 2.5 mg Melatonin (Melatonin) 9 mg PO BEDTIME PRN PRN Reason: INSOMNIA Last Admin: 07/09/19 01:44 Dose: 6 mg Metoprolol Tartrate (Lopressor Tab*) 25 mg PO BID [facility] Vital Signs - 8 hr 07/09/19 07/09/19 07/09/19 07:43 08:00 11:36 Temperature 98.5 F 97.8 F Pulse Rate 65 59 Respiratory 16 16 18 Rate Blood Pressure 142/94 151/97 (mmHg) O2 Sat by Pulse 98 98 Oximetry Oxygen Devices in Use Now: None Appearance: Pleasant gentleman sitting up in bed in NAD. Eyes: No Scleral Icterus Ears/Nose/Mouth/Throat: Mucous Membranes Moist Neck: Trachea Midline Respiratory: Symmetrical Chest Expansion and Respiratory Effort, Clear to Auscultation Cardiovascular: RRR - Normal S1 and S2. Pectus excavatum Abdominal: NL Sounds; No Tenderness; No Distention Extremities: - - Left LE erythema is much improved; lymphagitic streaks are resolved. Inguinal adenopathy also improving Neurological: Alert and Oriented x 3, NL Muscle Strength and Tone Result Diagrams: 07/08/19 07:00 07/08/19 07:00 Microbiology and Other Data: Microbiology 07/07/19 13:04 Aerobic Blood Culture - Preliminary Blood Venous No Growth Day 2 Anaerobic Blood Culture - Preliminary No Growth Day 2 07/07/19 14:24 Aerobic Blood Culture - Preliminary Blood Venous No Growth Day 1 Anaerobic Blood Culture - Preliminary No Growth Day 1 Assess/Plan/Problems-Billing Assessment: Mr Huber is a 49yo M with NS PMH (but has not seen a PCP in a couple years), who presented to ED with c/o left LE pain, edema, erythema, who failed outpatient therapy for cellulitis. - Patient Problems (1) Cardiomyopathy Comment: - Echo shows moderate diffuse hypokinesis with EF 30-35%; anteroseptum and anterior wall are worse. - Of note, patient does have pectum excavatus. States he was followed as a child , but doesn't remember any recommendations for surgery or cardiac w/u. - Cardiology input appreciated - increase Metoprolol and add Lisinopril. - Tentative plan for cardiac cath in AM. (2) V-tach Comment: - Patient was in Trigeminy on admission, and had 5 beats of Vtach 07/08 (asymptomatic). - Old EKG from PCP's office showed RBBB (in 2014). No prior echo or cardiac w/u. - Continue to monitor on Telemetry. - Increase Metoprolol. (3) Sepsis Comment: - Met sepsis criteria with fever, tachycardia, and leukocytosis. - Source is LE cellulitis. (4) Cellulitis Comment: - Suspect streptococcal infection. No purulence, and inguinal adenopathy seems to be improving - no indication for US at this time. - Continue Cefazolin #3. - Blood cultures showed no growth so far. (5) DVT prophylaxis Comment: - SQ heparin. (6) Full code status Status and Disposition: Inpatient. updated at bedside.
[2019-07-09] MEDS ORDERED: diPHENhydraMINE PO* 25 MG PO PRN (14:59)
[2019-07-09] MEDS ORDERED: Diazepam TAB(*) 5 MG PO PRN (14:59)
[2019-07-09] MEDS ORDERED: Aspirin TAB* 325 MG PO ONE (15:02)
[2019-07-09] MEDS: Acetaminophen TAB* 325 MG PO PRN (22:17)
[2019-07-10] MEDS: Heparin VIAL(*) 5000 UNITS/ML VIAL (FIVE THOUSAND) SUBCUT SCH ×3 (04:43→20:45)
[2019-07-10] MEDS: ceFAZolin 1 GM ADVAN(*) 1 GM in NS 0.9% 50 ML* 50 ML IVPB SCH ×3 (05:25→20:42)
[2019-07-10] MEDS ORDERED: Aspirin 81 mg CHEW TAB* 81 MG TAB.CHEW PO ONE (06:00)
[2019-07-10] MEDS ORDERED: NS 0.9% 1000 ML** 1,000 ML IV SCH ×2 (06:00→09:45)
[2019-07-10] MEDS: Acetaminophen TAB* 325 MG PO PRN (08:01)
[2019-07-10] MEDS ORDERED: VERAPAMIL 2.5 MG/ML 2 ML VIAL ** 5 mg/2 ml ONE (08:28)
[2019-07-10] MEDS ORDERED: fentaNYL* 50 MCG/ML 2 ML VIAL (100 MCG VIAL) ONE (08:28)
[2019-07-10] MEDS ORDERED: Heparin(*) 1000 UNIT/ML 10 ML VIAL CATH LAB IV ONE (08:28)
[2019-07-10] MEDS ORDERED: Midazolam* 1 MG/ML 5 ML VIAL (5 MG) ONE (08:28)
[2019-07-10] MEDS ORDERED: Lidocaine 1% INJ* 10 MG/ML 30 ML SDV ONE (08:29)
[2019-07-10] MEDS ORDERED: Iohexol 350 (CONTRAST) 200 ML MDV IV ONE ×2 (08:29→08:47)
[2019-07-10] MEDS ORDERED: Heparin 2 UNITS/ML IVPREMIX* 3,000 ML IV ONE (08:29)
[2019-07-10] MEDS ORDERED: nitroGLYCERIN DRIP* 25,000 MCG/250 ML BTL ONE (08:29)
[2019-07-10] MEDS ORDERED: Amiodarone 360 MG IVPREMIX* 0 MG/0 ML BAG IV ONE (08:49)
[2019-07-10] MEDS ORDERED: Amiodarone IV VIAL** 50 MG/ML 3 ML (150 MG) VIAL ONE (08:49)
[2019-07-10] MEDS ORDERED: Morphine INJ* 2 MG/ML 1 ML SYRINGE (TWO MG - NEW SYRINGE VERSION) IV ONE (10:00)
[2019-07-10] MEDS ORDERED: Metoprolol Tartrate TAB* 25 MG ONE (10:02)
[2019-07-10] MEDS: Lisinopril TAB* 5 MG PO SCH ×3 (10:47→20:43)
[2019-07-10] MEDS: Metoprolol Tartrate TAB* 25 MG PO SCH ×2 (10:47→20:45)
--- NOTE | 2019-07-10 12:15 | PTEDU ---
Patient Name: SUE SCHNEIDER SUE SCHNEIDER selected video: Cardiac Catheterization to view on 07/10/2019 at 12:13:09 PM from [facility] [id number]
--- NOTE | 2019-07-10 12:47 | PN ---
Subjective Date of Service: 07/10/19 Interval History: HOSPITALIST PROGRESS NOTE Patient seen and examined at bedside. He denies chest pain, palpitations or dyspnea. Slept better last night. His major complaint today is headache, described as "nagging", rated 6/10. No N/V, dizziness, numbness, tingling associated with it. Attributes it to lack of caffeine and poor sleep in the hospital. Family History: Unchanged from Admission Social History: Unchanged from Admission Past Medical History: Unchanged from Admission Objective Active Medications: Acetaminophen (Tylenol Tab*) 650 mg PO Q6H PRN PRN Reason: MILD PAIN or TEMP > 100.4 Last Admin: 07/10/19 08:01 Dose: 650 mg Heparin Sodium (Porcine) (Heparin Vial(*)) 5,000 units SUBCUT Q8HR [facility] Last Admin: 07/10/19 04:43 Dose: Not Given Cefazolin Sodium 1 gm/ Sodium (Chloride) 50 mls @ 200 mls/hr IVPB Q8H [facility] Last Admin: 07/10/19 05:25 Dose: 200 mls/hr Sodium Chloride (Ns 0.9% 1000 Ml) 1,000 mls @ 100 mls/hr IV .per rate [facility] Stop: 07/10/19 12:44 Lisinopril (Prinivil Tab*) 2.5 mg PO DAILY [facility] Last Admin: 07/10/19 10:47 Dose: 2.5 mg Melatonin (Melatonin) 9 mg PO BEDTIME PRN PRN Reason: INSOMNIA Last Admin: 07/09/19 22:18 Dose: 9 mg Metoprolol Tartrate (Lopressor Tab*) 25 mg PO BID [facility] Last Admin: 07/10/19 10:47 Dose: 25 mg Vital Signs - 8 hr 07/10/19 07/10/19 07/10/19 07:24 08:00 08:02 Temperature 98.0 F Pulse Rate 55 Respiratory 16 16 16 Rate Blood Pressure 144/90 (mmHg) O2 Sat by Pulse Oximetry 07/10/19 07/10/19 07/10/19 09:40 09:44 09:59 Temperature Pulse Rate 60 66 59 Respiratory 21 13 Rate Blood Pressure 138/103 167/101 (mmHg) O2 Sat by Pulse 97 96 96 Oximetry 07/10/19 07/10/19 07/10/19 10:01 10:14 10:29 Temperature Pulse Rate 57 60 64 Respiratory 13 13 14 Rate Blood Pressure 163/98 152/100 (mmHg) O2 Sat by Pulse 96 97 96 Oximetry 07/10/19 07/10/19 07/10/19 10:45 10:48 12:13 Temperature 96.7 F Pulse Rate 56 61 Respiratory 10 18 15 Rate Blood Pressure 153/98 142/88 (mmHg) O2 Sat by Pulse 97 99 Oximetry 07/10/19 12:31 Temperature Pulse Rate Respiratory 15 Rate Blood Pressure (mmHg) O2 Sat by Pulse Oximetry Oxygen Devices in Use Now: None Appearance: Pleasant gentleman sitting up in bed in NAD. Eyes: No Scleral Icterus Ears/Nose/Mouth/Throat: Mucous Membranes Moist Neck: Trachea Midline Respiratory: Symmetrical Chest Expansion and Respiratory Effort, Clear to Auscultation Cardiovascular: NL Sounds; No Murmurs; No JVD, RRR Abdominal: NL Sounds; No Tenderness; No Distention Extremities: - - Minimal erythema to LLE Neurological: Alert and Oriented x 3, NL Muscle Strength and Tone Result Diagrams: 07/08/19 07:00 07/08/19 07:00 Microbiology and Other Data: Microbiology 07/07/19 13:04 Aerobic Blood Culture - Preliminary Blood Venous No Growth Day 2 Anaerobic Blood Culture - Preliminary No Growth Day 2 07/07/19 14:24 Aerobic Blood Culture - Preliminary Blood Venous No Growth Day 1 Anaerobic Blood Culture - Preliminary No Growth Day 1 Assess/Plan/Problems-Billing Assessment: Mr Huber is a 49yo M with NS PMH (but has not seen a PCP in a couple years), who presented to ED with c/o left LE pain, edema, erythema, who failed outpatient therapy for cellulitis. - Patient Problems (1) Headache Comment: - states patient had episodes of WHEAT at home. No prior w/u for it. He thinks it could be associated with lack of caffeine/poor sleep in the hospital. It does have some characteristics of tension WHEAT. - Check CT brain without contrast. - Change diet to heart healthy with caffeine. (2) Cardiomyopathy Comment: - Echo shows moderate diffuse hypokinesis with EF 30-35%; anteroseptum and anterior wall are worse. - Of note, patient does have pectum excavatus. States he was followed as a child , but doesn't remember any recommendations for surgery or cardiac w/u. - Cardiology input appreciated - continue Metoprolol and Lisinopril. - Preliminary cardiac cath report of no obstructive CAD. (3) V-tach Comment: - Patient was in Trigeminy on admission, and had 5 beats of Vtach 07/08 (asymptomatic). - Old EKG from PCP's office showed RBBB (in 2014). No prior echo or cardiac w/u. - Continue to monitor on Telemetry. - Increase Metoprolol. (4) Sepsis Comment: - Met sepsis criteria with fever, tachycardia, and leukocytosis. - Source is LE cellulitis. - Resolved. (5) Cellulitis Comment: - Suspect streptococcal infection. No purulence, and inguinal adenopathy seems to be improving - no indication for US at this time. - Continue Cefazolin #4. - Blood cultures showed no growth so far. (6) DVT prophylaxis Comment: - SQ heparin. (7) Full code status Status and Disposition: Inpatient. updated at bedside.
[2019-07-10] MEDS ORDERED: Butalb/Acetamin/Caff TAB* 1 TAB PO PRN (12:56)
[2019-07-10] MEDS ORDERED: Potassium Chloride* LIQUID 20 MEQ/15 ML UDC PO ONE (14:03)
[2019-07-11] MEDS: ceFAZolin 1 GM ADVAN(*) 1 GM in NS 0.9% 50 ML* 50 ML IVPB SCH (04:05)
[2019-07-11 06:07] LABS: BUN/Creatinine Ratio 15.4 (8-20); C Reactive Protein 18.91 mg/L (<8.01); Calcium 9.2 mg/dL (8.6-10.3); EGFR African American 106.7 (>60); EGFR Non-African American 88.2 (>60); HDL Cholesterol 36.1 mg/dL; Potassium 4.4 mmol/L (3.5-5.0)
[2019-07-11] MEDS: Heparin VIAL(*) 5000 UNITS/ML VIAL (FIVE THOUSAND) SUBCUT SCH (07:09)
[2019-07-11] MEDS ORDERED: Cephalexin CAP* 500 MG PO SCH (09:00)
[2019-07-11] MEDS ORDERED: Perflutren Lipid Microsphere* 3 ML VIAL ONE (09:06)
[2019-07-11] MEDS: Metoprolol Tartrate TAB* 25 MG PO SCH (09:49)
[2019-07-11] MEDS: Lisinopril TAB* 5 MG PO SCH (09:50)
--- NOTE | 2019-07-11 10:15 | ECHO ---
*[facility]* [place] [address] Fax #: [phone] Limited Transthoracic Echocardiogram Patient: Juan Huber : 1970 Study Date: 07/11/2019 Age: 49 Gender: M HR: 57 bpm Height: 74 in /188 cm BSA: 2.24 m^2 Weight: 209 lb /95 kg BMI: 26.9 kg/m^2 *Rig Builder: * Jeannette Ndiaye RD *Referring Physician: * Dank Romero MD *Reading Physician: * Dank Romero MD Indications: Cardiomyopathy. History: Pectus excavatum,nonobstructuve CAD. Risk factors: Hypertension. Conclusions Summary: - Left ventricle: The estimated ejection fraction is 40-45%. Systolic function is mildly improved from the study of 07/08/2019. Diffuse hypokinesis with regional variations. - Right ventricle: Systolic function is mildly reduced. Study data: Transthoracic echocardiogram, limited study. Procedure: Transthoracic echocardiography was performed. Image quality was good. Intravenous Definity , 2 mlswas administered. Image enhancement administered by Patient status: Inpatient. Patient room number: 452. Comparison is made to the study of 07/08/2019. Rhythm: Bradycardia. Findings Left ventricle: The estimated ejection fraction is 40-45%. Systolic function is improved from the study of 07/08/2019. Diffuse hypokinesis with regional variations. Regional wall motion abnormalities: Moderate hypokinesis of the mid anterior and mid anteroseptal myocardium; mild hypokinesis of the mid inferior and mid anterolateral myocardium. Left ventricular diastolic function parameters are indeterminate. Right ventricle: Not well visualized. Systolic function is mildly reduced. Prepared and electronically signed by Dank Romero MD 07/11/2019 10:15
--- NOTE | 2019-07-11 10:58 | CATH ---
CC: Dr. Wilks, [facility] CARDIAC CATHETERIZATION REPORT: DATE OF PROCEDURE: 07/10/19 INDICATION FOR THE PROCEDURE: Asked by Dr. Wilks to perform cardiac catheterization in light of moderate left ventricular systolic dysfunction, question etiology. The procedure was coronary arteriography, left heart catheterization. CONSENT: The patient was interviewed and examined on the floor of the hospital where risks and benefits were explained. He understood them and wished to proceed. APPROACH UTILIZED: Right radial artery was assessed under ultrasound on the floor of the hospital for size and it was determined to be adequate for an approach and as such it was utilized. PRECARDIAC CATHETERIZATION LABORATORY RESULTS: Hemoglobin and hematocrit of 14.1/41 with a platelet count of 251,000. BUN and creatinine of 9 and 0.77. Sodium 143, potassium 3.8, chloride 106, bicarb 30, troponin 0.01. EQUIPMENT UTILIZED: 1. Right radial artery sheath - a 6-Greek Glidesheath slender. 2. Diagnostic coronary catheter was a 5-Greek TIG4 curved catheter. 3. Diagnostic wire utilized, a 260 cm length Brower curved guidewire. 4. Left heart catheterization catheter, a 5-Greek PIG short radial catheter. 5. Hemostasis device utilized - a regular length Vasc Band by [employer]. MEDICATIONS GIVEN DURING THE PROCEDURE: 1. Radial artery cocktail including 3000 units of heparin, 300 mcg of nitroglycerin, and 3 mg of verapamil. 2. 1% lidocaine for local anesthesia. DESCRIPTION OF PROCEDURE: The patient was brought to the cardiovascular laboratory where formal time-out was performed. He was prepped and draped in a sterile fashion and under ultrasound guidance, the right radial artery was cannulated and sheath was placed. Coronary arteriography was performed followed by left heart catheterization and pullback obtained for assessment of gradient across the aortic valve. Left ventriculography was performed utilizing 28 cc of Omnipaque dye at a rate of 40 cc/s. Following this, the catheter and sheath were removed. Hemostasis was obtained with Glidesheath. The reverse Barbeau at the end of the case with the right great radial artery band placed was a B. The total contrast used was 100 cc of Omnipaque dye. The radiation exposure includes 7.6 minutes of fluoro time. The air kerma radiation was 1442 mGy. The DAP radiation was 8765 microgray per meter squared. RESULTS: HEMODYNAMIC DATA: Left heart catheterization - central aortic pressure recorded at 164/86 with a mean of 119, left ventricular 161 over left ventricular end-diastolic pressure of 19 to 20 mmHg. CORONARY ARTERIOGRAPHY: A. Right coronary artery - a dominant vessel supplying multiple acute marginal branches and a small posterior descending artery and small posterior left ventricular branch, which extended just to the proximal portion of the inferior wall. There appeared to be somewhat anterior takeoff to this right coronary artery as well. No significant obstruction was seen throughout the course of the vessel. Mild corkscrew appearance was seen to the distal portions of the vessels raising the question of possible left ventricular hypertrophy. Of note, an acute marginal branch just as the artery turned onto the inferior surface of the heart was noted to supply the midportion of the inferior wall. B. Left coronary artery: 1. Left main - widely patent with no significant obstruction. 2. Left anterior descending artery - the left anterior descending artery had no significant luminal irregularities noted throughout. It supplied a high first and second diagonal branch posteriorly directed as well as a mid diagonal branch. No significant disease was seen in those vessels as well. There was a mild 15% to 20% ostial narrowing noted. 3. Circumflex artery - a nondominant vessel supplying a high first obtuse marginal branch/trifurcation marginal branch followed by a thin second and third obtuse marginal branch and a larger bifurcating fourth obtuse marginal branch. There was no significant disease seen throughout the course of the vessel. LEFT VENTRICULOGRAPHY: - was performed in the [place] projection revealing mild hypokinesis/low normal left ventricular systolic function with mid anterior wall and proximal inferior wall appearing slightly more hypokinetic than the rest of the ventricle. Overall ejection fraction 45% to 50%. No significant mitral regurgitation was noted. OVERALL ASSESSMENT: Low normal to mildly reduced left ventricular systolic dysfunction as described above. No significant coronary artery disease seen to account for LV dysfunction. Of note, the left ventriculogram was done in single - plane analysis and as such the definitive overall global LV function may be difficult to assess given single-plane technique. Echocardiogram did suggest, per interpretation, a more significant degree of left ventricular systolic dysfunction, suggest clinical correlation. This information was shared with Dr. Dank Roemro, who is the primary cupola liner taking care of the patient in the hospital, who will address ongoing medical management with respect to the cardiomyopathy. [id number]/[facility] #: [id number] [facility]
[2019-07-11 11:45] VITALS: BP 141/92
--- NOTE | 2019-07-12 00:27 | DS ---
CC: Dr. Sarkis Kincaid; Dr. Jessica Castillo, [facility]; Dr. Wilks; Dr. Betancur.* DISCHARGE SUMMARY: DATE OF ADMISSION: 07/07/19 DATE OF DISCHARGE: 07/11/19 POLLUTION CONTROL TECHNICIAN: Dr. Wilks. DISCHARGE DIAGNOSES: 1. Left lower extremity cellulitis, likely streptococcal in nature. 2. Non-ischemic cardiomyopathy. 3. Frequent premature ventricular contractions with nonsustained ventricular tachycardia. SECONDARY DIAGNOSES: 1. Status post tonsillectomy. 2. Status post appendectomy. MEDICATION LIST: All of the medications are new: 1. Acetaminophen 650 mg p.o. q.4 hours p.r.n. pain or fever. 2. Metoprolol tartare 25 mg p.o. b.i.d. 3. Lisinopril 2.5 mg p.o. b.i.d. 4. Cephalexin 500 mg p.o. 4 times a day for 5 more days. HOSPITAL COURSE: Mr. Huber is 49-year-old male with no significant past medical history, but who has not seen a primary care provider in a couple of years, who presented to the emergency room with complaints of left leg pain, edema, erythema, and fever. He was initially seen in the emergency room on 07/06/19 and discharged on doxycycline and cephalexin. He states that the area of erythema had progressed beyond the demarcated area so he came to the emergency room for further evaluation. He had normal white cell count on admission, but he had significant left leg edema and erythema extending all the way to his inguinal area with lymphangitic streaks and a palpable inguinal mass suggestive of adenopathy/phlegmon. The patient was admitted for further evaluation and started on cephazolin empirically. He remained afebrile while in the hospital and had significant improvement of his leg erythema, pain, and edema. His inguinal adenopathy has almost resolved and the erythema is practically gone. Although the patient had no cardiac complaints on admission, he was noted to have some irregular heart beats on physical examination. So, for that reason EKG was performed and it showed the patient was in trigeminy. The next day the patient had 5 beats of V-tach, asymptomatic, and at that point a transthoracic echocardiogram was performed and it showed ejection fraction of 30% to 35%, with moderate diffuse hypokinesis. The anterior septum and anterior wall are worst and the inferolateral wall is best. There was no significant valvular disease. The patient was seen in consultation by Cardiology (Dr. Wilks) and his impression was that the patient had cardiomyopathy of unclear etiology that could be multifactorial in nature considering the possibility of untreated hypertension, nonsustained ventricular tachycardia with frequent PVCs, and moderate alcohol drinking. His recommendation was for treatment with metoprolol and lisinopril and to perform a cardiac cath. This was done by Dr. Betancur on 07/10/19 and he showed no significant coronary artery disease. On the cardiac cath, the patient's overall ejection fraction appeared to be improved with ejection fraction of 45% to 50%. The patient was seen in followup by Dr. Romero and in the beginning there was the impression that the patient may qualify for a LifeVest, but as his ejection fraction has improved, Dr. Romero feels that a LifeVest is not indicated anymore. The day before discharge, the patient had a cup of regular strong coffee and he had an upsetting conversation with his mother on the phone and at that point he had another episode of 7 beats of V-tach. At that point he was aware that he was having irregular heart beat. After further conversation with Dr. Romero the plan is for the patient to be discharged home today on metoprolol and lisinopril. From the hospital he will go to [facility]'s office to shrimp picker an event monitor so Cardiology can keep track of his PVC burden to decide further adjustments to his therapy and to even see if it is necessary for him to be evaluated by an straw baler. The patient was advised to avoid caffeine as he appears to be sensitive to it and also to avoid alcohol as this could be the etiology of his non-ischemic cardiomyopathy. While in the hospital, the patient complained of headache, described as a band around his head that he thought was associated with lack of caffeine and sleep. He had some improvement with Tylenol and a CT of the brain without contrast showed no acute or significant intracranial abnormality. The patient did not have a primary care provider and at this point, he is being set up to follow up with Dr. Kincaid or Dr. Castilol at the [facility]. He already has a followup scheduled with Dr. Long on 07/15/19 at 3:[address] Wilks's office will also schedule cardiology followup in 3 to 4 weeks. The patient is medically stable for discharge at this time. He received education about his diagnosis and concerning symptoms that would prompt his return to the emergency room. PHYSICAL EXAMINATION: Vital Signs: Temperature 98.1, heart rate 62, respiratory rate 16, oxygen saturation 97% on room air, and blood pressure is 141/92. General: The patient is a pleasant, middle aged gentleman, sitting up in bed, in no acute distress. CVS: S1 and S2. Regular rate and rhythm. The patient has pectus excavatum. Chest sounds present bilaterally, with no added sounds. Extremities: There is minimal erythema around the scab area on his left johnson, but all the areas of erythema are resolved at this time. Neuro: He is alert and oriented x3, able to move all 4 extremities. DIET: Heart-health diet, avoid alcohol and caffeine. ACTIVITY: As tolerated. The patient was advised to avoid excessive physical exertion. 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 DISPOSITION: To home. STATUS WHILE IN THE HOSPITAL: Inpatient. CONDITION AT THE TIME OF DISCHARGE: Fair. Please keep in mind this is a summarized version of the patient's complex hospital stay. If you need more information, please feel free to call me at [phone] or please obtain the full medical records. TIME SPENT: Approximately 50 minutes were spent to complete this discharge. The patient's was present during discharge and all of their questions were answered. [id number]/[facility] #: [id number] [place]
== END 2019-07-11 13:04 | disposition home or self-care (01) | DRG 383 ==
LOC: ED 09:45 → MED 12:49 → MEDTELE 07-10 11:22
PROVIDERS: ADMIT Internal Medicine; ATTEND Internal Medicine
PROC: B2111ZZ Fluoroscopy of Multiple Coronary Arteries using Low Osmolar Contrast (ICD-10-PCS; 2019-07-10)
PROC: B2151ZZ Fluoroscopy of Left Heart using Low Osmolar Contrast (ICD-10-PCS; 2019-07-10)
PROC: 4A023N7 Measurement of Cardiac Sampling and Pressure, Left Heart, Percutaneous Approach (ICD-10-PCS; principal; 2019-07-10 08:00)
DX: L03.116 Cellulitis of left lower limb (principal); A40.9 Streptococcal sepsis, unspecified; I47.2 Ventricular tachycardia; I42.8 Other cardiomyopathies; I49.3 Ventricular premature depolarization; R59.0 Localized enlarged lymph nodes; R51 Headache; Z23 Encounter for immunization; Z56.0 Unemployment, unspecified; Z72.89 Other problems related to lifestyle; Q67.6 Pectus excavatum
CPT/HCPCS: 36415; 70450; 80048; 80053; 80061; 83605; 83735; 84443; 84484; 85025; 86140; 87040; 90686; 93005; 93306; 93308; 93458; 96365; 96372; 99284; A9270-GY; C8924; C8929; J0282; J0690; J0696; J1644; J2250; J2270; J3010